=== PATIENT | male | born 1995 | race Caucasian/White ===

== ENCOUNTER 2016-07-13 13:26 | Emergency (ER) | payer BC ==
[~2016-07-13] VITALS: Ht 170.2 cm; Wt 68.0 kg
[2016-07-13 13:38] VITALS: Ht 170.2 cm; Wt 68.0 kg
[2016-07-13] MEDS ORDERED: GENT5DRO28 RIGHT EYE (14:15)
--- NOTE | 2016-07-13 14:19 | ERD ---
ER Documentation Chief Complaint Date/Time DATE: 07/13/16 TIME: 14:17 Chief Complaint right eye redness and irritation x 3 days; HPI This 89-year-old male complains of right eye redness and irritation for 3 days. He denies pain, visual changes. He denies any recent URIs. Slight discharge in the morning. Denies any history of trauma or contact lens use ROS All systems reviewed and are negative except as per history of present illness. Medications Home Meds Active Scripts Gentamicin Sulfate* (Gentamicin Sulfate* Ophth) 0.3% - 5 Ml Drops, 1 DROP RIGHT EYE Q4 for 7 Days, EA Prov:ANDRE WILLS MD 07/13/16 Allergies Allergies: Coded Allergies: No Known Allergy (Unverified , 05/05/13) PMhx/Soc Medical and Surgical Hx: pt denies Medical Hx, pt denies Surgical Hx Hx Alcohol Use: No Hx Substance Use: No Hx Tobacco Use: No Smoking Status: Never smoker Physical Exam Vitals Vital Signs Date Time Temp Pulse Resp B/P Pulse Ox O2 Delivery O2 Flow Rate FiO2 07/13/16 13:38 98.1 68 18 119/67 97 Physical Exam Const: [] Alert, not ill-appearing per Head: Atraumatic Eyes: There is some lateral scleral redness on the right eye. There is no periorbital swelling or proptosis. Eyes are Gurwinder and extraocular movements intact and anterior chambers appear normal. Visual acuity is within normal limits bilaterally. ENT: Normal External Ears, Nose and Mouth. Neck: Full range of motion..~ No meningismus. Resp: Clear to auscultation bilaterally Cardio: Regular rate and rhythm, no murmurs Abd: Soft, non tender, non distended. Normal bowel sounds Skin: No petechiae or rashes Back: No midline or flank tenderness Ext: No cyanosis, or edema Neur: Awake and alert Psych: Normal Mood and Affect Procedures/MDM Patient presents with right eye conjunctivitis without signs to suggest ulcerations, dendritic lesions, threats to vision, orbital cellulitis, trauma or foreign body. We treated gentamicin ophthalmic solution and instructions to follow-up with ophthalmology for persistent symptoms despite treatment. The patient was stable with no new complaints during the ER course. Clinically, there is no current evidence to suggest meningitis, sepsis, acute abdomen, pneumonia, acute coronary syndrome, pulmonary embolism, or any other emergent condition appearing to require further evaluation or hospitalization. The patient should certainly return for any new or worsening symptoms per the aftercare instructions. They should otherwise follow-up with her primary care doctor for reevaluation this week. Departure Diagnosis: Primary Impression: Conjunctivitis Conjunctivitis type: unspecified Laterality: right Qualified Code: H10.9 - Conjunctivitis of right eye, unspecified conjunctivitis type Condition: Stable Patient Instructions: Conjunctivitis, Bacterial Referrals: [facility] Hours: Fri - Fri 9:00 AM - 5:00 PM Additional Instructions: Recheck with ophthalmology for persistent symptoms. Otherwise for fevers, redness, swelling, new symptoms sooner. ANDRE WILLS MD July 13, 2016 14:19
== END 2016-07-13 14:27 | disposition home or self-care (01) ==
LOC: FTE 13:26
DX: H10.9 Unspecified conjunctivitis (principal)
CPT/HCPCS: 99283